=== PATIENT | female | born 1995 | race Asian ===

== ENCOUNTER 2021-03-06 20:35 | Emergency (ER) | payer BC ==
[~2021-03-06] VITALS: Ht 152.4 cm; Wt 45.5 kg
[2021-03-06] MEDS ORDERED: LIDOCAINE 1%/EPI 1:200,000/PF 10 ML VIAL SQ ONE (23:00)
[2021-03-06] MEDS ORDERED: PERTUSS(ACELL),DIPH,TET VAC/PF 0.5 ML SYRINGE IM. ONE (23:00)
[2021-03-06] MEDS ORDERED: BACITRACIN 0.9 GM PACKET OINTMENT TP ONE (23:00)
[2021-03-06] MEDS ORDERED: BUPIVACAINE 0.25%/EPI 1:200,000/PF 10 ML VIAL SQ ONE (23:15)
[2021-03-07] VITALS: BP 119/67
== END 2021-03-07 00:11 | disposition home or self-care (01) ==
LOC: EMS 20:38
DX: S61.012A Laceration without foreign body of left thumb without damage to nail, initial encounter (principal); W45.8XXA Other foreign body or object entering through skin, initial encounter; Y93.89 Activity, other specified; Y92.89 Other specified places as the place of occurrence of the external cause; Y99.8 Other external cause status
CPT/HCPCS: 12001; 90471; 90715; 99283; J3490